=== PATIENT | male | born 1940 | race Caucasian/White ===

== ENCOUNTER 2023-04-12 06:14 | Day surgery (SDC) | payer MEDICARE, OTHER ==
[~2023-04-12] VITALS: Ht 172.7 cm; Wt 113.7 kg
[2023-04-12] MEDS ORDERED: LISINOPRIL-HCT1 EAC1 PO (06:57)
[2023-04-12] MEDS ORDERED: NEURONTIN300 MG PO (06:57)
[2023-04-12] MEDS ORDERED: ASPI325 PO (06:58)
[2023-04-12] MEDS ORDERED: ROSUVASTATIN CA10 MG PO (06:58)
[2023-04-12] MEDS ORDERED: HYDROCODONE-AC1 EA19 PO (06:58)
[2023-04-12] MEDS ORDERED: IBUP200 PO (06:59)
--- NOTE | 2023-04-12 07:45 | NUR ---
04/12/23 0745 Dolly Donovan BLOCK ATTEMPTED ON THE RIGHT HAND X4 WITHOUT SUCCESS. THE BLOCK ATTEMPS WERE THE REASON FOR THE DELAY INTO THE OR. PT TOLERATED ALL ATTEMPTS WELL. [email or web address] X2 AND [email or web address] X2.
[2023-04-12 08:44] VITALS: BP 149/65
== END 2023-04-12 09:25 | disposition home or self-care (01) ==
LOC: ORSCSDS 06:14
PROVIDERS: Orthopaedic Surgery
PROC: 01N50ZZ Release Median Nerve, Open Approach (ICD-10-PCS; principal; 2023-04-12 07:30)
DX: G56.03 Carpal tunnel syndrome, bilateral upper limbs (principal); I10 Essential (primary) hypertension; Z86.73 Personal history of transient ischemic attack (TIA), and cerebral infarction without residual deficits; Z79.899 Other long term (current) drug therapy; Z79.82 Long term (current) use of aspirin; E66.9 Obesity, unspecified; Z68.38 Body mass index [BMI] 38.0-38.9, adult
CPT/HCPCS: J0690; J2001; J2704; J2795; J3010; J7120

== ENCOUNTER 2023-08-30 07:06 | Day surgery (SDC) | payer MEDICARE, OTHER ==
[~2023-08-30] VITALS: Ht 172.7 cm; Wt 115.1 kg
[~2023-08-30 07:06] MED LIST: ASPI325 PO; GABA600 PO; HYDROCODONE-AC1 EA19 PO; IBUP800 PO; LISINOPRIL-HCT1 EAC1 PO; MULTI-VITAMIN1 EAC2 PO; OMEGA-3 FISH O1 EA13 PO; PRESERVISION A1 EAC4 PO; ROSU10TA PO; [UNRECOGNIZED DRUG - OTHER] PO
[2023-08-30] MEDS ORDERED: AREDS 2 (07:59)
[2023-08-30] MEDS ORDERED: Avastin25 MG/ML (08:01)
--- NOTE | 2023-08-30 08:42 | NUR ---
08/30/23 0842 [place] Alcaraz BLOCK COMPLETED BY DR. QUEVEDO
[2023-08-30 09:00] VITALS: BP 147/71
--- NOTE | 2023-08-30 09:11 | NUR ---
08/30/23 0911 TERESA MITCHELL RX FOR NORCO WAS DECLINED PT PICKED UP #90 YESTERDAY.
== END 2023-08-30 09:36 | disposition home or self-care (01) ==
LOC: ORSCSDS 07:06
PROVIDERS: Orthopaedic Surgery
PROC: 01N50ZZ Release Median Nerve, Open Approach (ICD-10-PCS; principal; 2023-08-30 08:30)
DX: G56.02 Carpal tunnel syndrome, left upper limb (principal); I10 Essential (primary) hypertension; E66.9 Obesity, unspecified; Z68.38 Body mass index [BMI] 38.0-38.9, adult; Z79.82 Long term (current) use of aspirin; Z79.899 Other long term (current) drug therapy
CPT/HCPCS: A9270; J0690; J2001; J3010